=== PATIENT | female | born 1965 | race Caucasian/White ===

== ENCOUNTER 2023-06-02 09:59 | Day surgery (SDC) | payer OTHER ==
[~2023-06-02] VITALS: Ht 167.6 cm; Wt 78.0 kg
[~2023-06-02 09:59] MED LIST: ATIVAN0.5 MG PO; ATORVASTATIN CA20 MG PO; MECLIZINE12.5 M1 PO; TOPROL XL25 M1 PO
[2023-06-02 12:44] VITALS: BP 145/84
== END 2023-06-02 13:10 | disposition home or self-care (01) ==
LOC: ENDO 09:59
PROVIDERS: ATTEND Internal Medicine Gastroenterology
DX: K50.10 Crohn's disease of large intestine without complications (principal); K57.30 Diverticulosis of large intestine without perforation or abscess without bleeding; D12.2 Benign neoplasm of ascending colon; D12.8 Benign neoplasm of rectum; K64.8 Other hemorrhoids; K22.2 Esophageal obstruction; K44.9 Diaphragmatic hernia without obstruction or gangrene; K29.70 Gastritis, unspecified, without bleeding; K29.80 Duodenitis without bleeding; K31.9 Disease of stomach and duodenum, unspecified